=== PATIENT | male | born 1945 | race Caucasian/White ===

== ENCOUNTER → 2017-02-23 | Outpatient (CLI) | payer MEDICARE ==
[~2017-02-23] VITALS: Ht 172.7 cm; Wt 87.3 kg
[~2017-02-23] MED LIST: ADVIL200 MG PO; FORADIL IH; GOOD SENSE ASP325 M1 PO; PLAVIX 75MG TAB75 MG PO; SPIRIVA18 MCG IH; THEOCAP200 MG PO; TYLENOL 500MG500 MG PO; VENTOLIN0.09 MG INH; ZOCOR40 MG PO
[2017-02-23 16:26] VITALS: BP 179/99
== END ==
LOC: AMSURD 16:03
DX: R06.00 Dyspnea, unspecified (principal); Z12.5 Encounter for screening for malignant neoplasm of prostate; E78.2 Mixed hyperlipidemia; M54.16 Radiculopathy, lumbar region; G46.0 Middle cerebral artery syndrome; I49.3 Ventricular premature depolarization; J44.9 Chronic obstructive pulmonary disease, unspecified; I67.9 Cerebrovascular disease, unspecified

== ENCOUNTER → 2018-03-20 | Outpatient (CLI) | payer MEDICARE ==
[2017-02-23 16:26] VITALS: BP 179/99
[2018-03-20 09:26] LABS: EOS # 0.1 (0.04-0.40); HEMATOCRIT 45.6 % (42.0-52.0); LYMPH# 1.2 (1.50-4.00); MEAN CELL VOLUME 95 fl (78-100); MEAN CORPUSCULAR HEMOGLOBIN 31 pg (27-31); MEAN CORPUSCULAR HGB CONC 33 g/dL (33-37); MEAN PLATELET VOLUME 9.7 fl (7.4-10.4); MONO # 0.8 (0.20-0.80); PLATELET COUNT 214 K/mm3 (130-400); RED CELL DISTRIBUTION WIDTH 12.8 % (11.5-14.5); WHITE BLOOD COUNT 9.1 K/mm3 (4.8-10.8)
[2018-03-20 09:55] LABS: ALBUMIN 4.6 g/dL (3.5-5.0); BUN/CREATININE RATIO 15.6 (6.0-26.0); CALCIUM 9.5 mg/dL (8.4-10.2); POTASSIUM 4.3 mmol/L (3.6-5.0); TOTAL BILIRUBIN 0.5 mg/dL (0.2-1.3); TOTAL PROTEIN 7.4 g/dL (6.3-8.2)
[2018-03-20 10:55] LABS: ERYTHROCYTE SEDIMENTATION RATE 17 mm/hr (0-20)
== END ==
LOC: LAB 09:09
PROVIDERS: Internal Medicine
DX: Z12.5 Encounter for screening for malignant neoplasm of prostate (principal); Z12.11 Encounter for screening for malignant neoplasm of colon; E78.2 Mixed hyperlipidemia; J44.9 Chronic obstructive pulmonary disease, unspecified; D12.6 Benign neoplasm of colon, unspecified

== ENCOUNTER → 2019-04-09 | Outpatient (CLI) | payer MEDICARE ==
[2017-02-23 16:26] VITALS: BP 179/99
[2019-04-09 09:34] LABS: EOS # 0.1 (0.04-0.40); EOS % 1.4 % (0.0-4.0); HEMATOCRIT 45.5 % (42.0-52.0); LYMPH# 1.2 (1.50-4.00); MEAN CELL VOLUME 95 fl (78-100); MEAN CORPUSCULAR HEMOGLOBIN 31 pg (27-31); MEAN CORPUSCULAR HGB CONC 33 g/dL (33-37); MEAN PLATELET VOLUME 10.2 fl (7.4-10.4); MONO # 0.7 (0.20-0.80); NEU # 7.3 (1.40-6.50); PLATELET COUNT 208 K/mm3 (130-400); RED BLOOD COUNT 4.77 M/mm3 (4.20-5.60); RED CELL DISTRIBUTION WIDTH 13.1 % (11.5-14.5); WHITE BLOOD COUNT 9.4 K/mm3 (4.8-10.8)
[2019-04-09 09:45] LABS: ALBUMIN 4.3 g/dL (3.4-4.8); POTASSIUM 4.1 mmol/L (3.5-5.1)
[2019-04-09 09:46] LABS: CALCIUM 9.3 mg/dL (8.3-10.5)
[2019-04-09 09:47] LABS: TOTAL PROTEIN 7.2 g/dL (6.2-8.1)
[2019-04-09 09:49] LABS: TOTAL BILIRUBIN 0.3 mg/dL (0.2-1.2)
[2019-04-09 10:40] LABS: ERYTHROCYTE SEDIMENTATION RATE 12 mm/hr (0-20)
== END ==
LOC: LAB 09:23
PROVIDERS: Internal Medicine
DX: Z00.00 Encounter for general adult medical examination without abnormal findings (principal); Z12.11 Encounter for screening for malignant neoplasm of colon; Z12.5 Encounter for screening for malignant neoplasm of prostate; E78.5 Hyperlipidemia, unspecified; G45.9 Transient cerebral ischemic attack, unspecified; N52.9 Male erectile dysfunction, unspecified

== ENCOUNTER → 2019-10-08 | Outpatient (CLI) | payer MEDICARE ==
[2017-02-23 16:26] VITALS: BP 179/99
[2019-10-08 09:36] LABS: EOS # 0.1 (0.04-0.40); EOS % 1.2 % (0.0-4.0); HEMATOCRIT 47.4 % (42.0-52.0); HEMOGLOBIN 15.1 g/dL (13.5-18.0); LYMPH# 1.1 (1.50-4.00); MEAN CELL VOLUME 94 fl (78-100); MEAN CORPUSCULAR HEMOGLOBIN 30 pg (27-31); MEAN CORPUSCULAR HGB CONC 32 g/dL (33-37); MEAN PLATELET VOLUME 9.9 fl (7.4-10.4); NEU # 6.7 (1.40-6.50); PLATELET COUNT 244 K/mm3 (130-400); RED BLOOD COUNT 5.02 M/mm3 (4.20-5.60); RED CELL DISTRIBUTION WIDTH 12.9 % (11.5-14.5); WHITE BLOOD COUNT 8.9 K/mm3 (4.8-10.8)
[2019-10-08 09:39] LABS: ALBUMIN 4.5 g/dL (3.4-4.8); POTASSIUM 4.1 mmol/L (3.5-5.1)
[2019-10-08 09:40] LABS: CALCIUM 9.8 mg/dL (8.3-10.5)
[2019-10-08 09:42] LABS: TOTAL PROTEIN 7.7 g/dL (6.2-8.1)
[2019-10-08 09:44] LABS: TOTAL BILIRUBIN 0.3 mg/dL (0.2-1.2)
[2019-10-08 10:47] LABS: ERYTHROCYTE SEDIMENTATION RATE 19 mm/hr (0-20)
== END ==
LOC: LAB 09:13
PROVIDERS: Internal Medicine
DX: J44.9 Chronic obstructive pulmonary disease, unspecified (principal); D12.6 Benign neoplasm of colon, unspecified; E78.5 Hyperlipidemia, unspecified

== ENCOUNTER → 2020-04-13 | Outpatient (CLI) | payer MEDICARE ==
[2017-02-23 16:26] VITALS: BP 179/99
[2020-04-13 09:39] LABS: EOS # 0.1 (0.04-0.40); EOS % 1.1 % (0.0-4.0); HEMATOCRIT 47.1 % (42.0-52.0); HEMOGLOBIN 15.3 g/dL (13.5-18.0); LYMPH# 1.2 (1.50-4.00); MEAN CELL VOLUME 96 fl (78-100); MEAN CORPUSCULAR HEMOGLOBIN 31 pg (27-31); MEAN CORPUSCULAR HGB CONC 33 g/dL (33-37); MEAN PLATELET VOLUME 9.8 fl (7.4-10.4); MONO # 0.7 (0.20-0.80); NEU # 7.1 (1.40-6.50); PLATELET COUNT 246 K/mm3 (130-400); RED BLOOD COUNT 4.93 M/mm3 (4.20-5.60); WHITE BLOOD COUNT 9.1 K/mm3 (4.8-10.8)
[2020-04-13 11:14] LABS: ALBUMIN 4.5 g/dL (3.4-4.8)
[2020-04-13 11:15] LABS: POTASSIUM 4.4 mmol/L (3.5-5.1)
[2020-04-13 11:16] LABS: CALCIUM 9.4 mg/dL (8.3-10.5)
[2020-04-13 11:17] LABS: TOTAL PROTEIN 7.7 g/dL (6.2-8.1)
[2020-04-13 11:19] LABS: TOTAL BILIRUBIN 0.3 mg/dL (0.2-1.2)
[2020-04-13 11:54] LABS: ERYTHROCYTE SEDIMENTATION RATE 9 mm/hr (0-20)
== END ==
LOC: LAB 09:23
PROVIDERS: Internal Medicine
DX: J43.9 Emphysema, unspecified (principal)

== ENCOUNTER → 2020-04-16 | Outpatient (CLI) | payer MEDICARE ==
[2017-02-23 16:26] VITALS: BP 179/99
== END ==
LOC: RAD 15:33
DX: R06.02 Shortness of breath (principal)

== ENCOUNTER → 2020-10-27 | Outpatient (CLI) | payer MEDICARE ==
[2017-02-23 16:26] VITALS: BP 179/99
[2020-10-27 11:04] LABS: HEMATOCRIT 45.3 % (42.0-52.0); HEMOGLOBIN 14.4 g/dL (13.5-18.0); MEAN CELL VOLUME 95 fl (78-100); MEAN CORPUSCULAR HEMOGLOBIN 30 pg (27-31); MEAN CORPUSCULAR HGB CONC 32 g/dL (33-37); MEAN PLATELET VOLUME 10.1 fl (7.4-10.4); PLATELET COUNT 220 K/mm3 (130-400); RED BLOOD COUNT 4.75 M/mm3 (4.20-5.60); RED CELL DISTRIBUTION WIDTH 12.9 % (11.5-14.5); WHITE BLOOD COUNT 10.1 K/mm3 (4.8-10.8)
[2020-10-27 11:18] LABS: ALBUMIN 4.4 g/dL (3.4-4.8)
[2020-10-27 11:19] LABS: POTASSIUM 4.5 mmol/L (3.5-5.1)
[2020-10-27 11:20] LABS: CALCIUM 9.5 mg/dL (8.3-10.5)
[2020-10-27 11:21] LABS: TOTAL PROTEIN 7.5 g/dL (6.2-8.1)
[2020-10-27 11:23] LABS: TOTAL BILIRUBIN 0.3 mg/dL (0.2-1.2)
[2020-10-27 11:25] LABS: LYMPHOCYTE 11 % (20-51); MONOCYTE 5 % (3-10); NEUTROPHILS 82 % (42-75)
[2020-10-27 12:20] LABS: ERYTHROCYTE SEDIMENTATION RATE 19 mm/hr (0-20)
== END ==
LOC: LAB 10:29
PROVIDERS: Internal Medicine
DX: J44.9 Chronic obstructive pulmonary disease, unspecified (principal)

== ENCOUNTER → 2021-04-22 | Outpatient (CLI) | payer MEDICARE ==
[2021-04-22 11:04] LABS: ALBUMIN 4.5 g/dL (3.4-4.8); POTASSIUM 4.7 mmol/L (3.5-5.1)
[2021-04-22 11:05] LABS: CALCIUM 10.4 mg/dL (8.3-10.5)
[2021-04-22 11:06] LABS: TOTAL PROTEIN 7.8 g/dL (6.2-8.1)
[2021-04-22 11:08] LABS: TOTAL BILIRUBIN 0.6 mg/dL (0.2-1.2)
[2021-04-22 12:06] LABS: BASO # 0.02 (0.02-0.10); EOS # 0.12 (0.04-0.40); EOS % 1.3 % (0.0-4.0); HEMATOCRIT 48.5 % (42.0-52.0); HEMOGLOBIN 15.2 g/dL (13.5-18.0); LYMPH# 1.34 (1.50-4.00); MEAN CELL VOLUME 98 fl (78-100); MEAN CORPUSCULAR HEMOGLOBIN 31 pg (27-31); MEAN CORPUSCULAR HGB CONC 31 g/dL (33-37); MEAN PLATELET VOLUME 10.2 fl (7.4-10.4); MONO # 0.61 (0.20-0.80); PLATELET COUNT 232 K/mm3 (130-400); RED BLOOD COUNT 4.96 M/mm3 (4.20-5.60); RED CELL DISTRIBUTION WIDTH 12.5 % (11.5-14.5); WHITE BLOOD COUNT 8.9 K/mm3 (4.8-10.8)
== END ==
LOC: LAB 10:22
PROVIDERS: Internal Medicine
DX: Z12.5 Encounter for screening for malignant neoplasm of prostate (principal); E78.2 Mixed hyperlipidemia; K90.9 Intestinal malabsorption, unspecified

== ENCOUNTER → 2021-11-12 | Outpatient (CLI) | payer MEDICARE ==
[2021-11-12 11:52] LABS: BASO # 0.03 K/mm3 (0.02-0.10); EOS # 0.12 K/mm3 (0.04-0.40); EOS % 1.4 % (0.0-4.0); HEMATOCRIT 45.2 % (42.0-52.0); HEMOGLOBIN 14.6 g/dL (13.5-18.0); LYMPH# 1.32 K/mm3 (1.50-4.00); MEAN CELL VOLUME 94 fl (78-100); MEAN CORPUSCULAR HEMOGLOBIN 30 pg (27-31); MEAN CORPUSCULAR HGB CONC 32 g/dL (33-37); MEAN PLATELET VOLUME 9.6 fl (7.4-10.4); MONO # 0.55 K/mm3 (0.20-0.80); NEU # 6.35 K/mm3 (1.40-6.50); PLATELET COUNT 219 K/mm3 (130-400); RED BLOOD COUNT 4.82 M/mm3 (4.20-5.60); RED CELL DISTRIBUTION WIDTH 12.8 % (11.5-14.5); WHITE BLOOD COUNT 8.4 K/mm3 (4.8-10.8)
[2021-11-12 12:06] LABS: POTASSIUM 4.5 mmol/L (3.5-5.1)
[2021-11-12 12:07] LABS: ALBUMIN 4.4 g/dL (3.4-4.8)
[2021-11-12 12:08] LABS: CALCIUM 9.5 mg/dL (8.3-10.5)
[2021-11-12 12:09] LABS: TOTAL PROTEIN 7.4 g/dL (6.2-8.1)
[2021-11-12 12:11] LABS: TOTAL BILIRUBIN 0.5 mg/dL (0.2-1.2)
[2021-11-12 13:18] LABS: ERYTHROCYTE SEDIMENTATION RATE 2 mm/hr (0-20)
== END ==
LOC: LAB 11:34
PROVIDERS: Internal Medicine
DX: J44.9 Chronic obstructive pulmonary disease, unspecified (principal); E78.2 Mixed hyperlipidemia; K90.9 Intestinal malabsorption, unspecified; I71.4 Abdominal aortic aneurysm, without rupture

== ENCOUNTER → 2021-12-20 | Outpatient (CLI) | payer MEDICARE | LOC: LAB 09:34 | DX: K90.9 Intestinal malabsorption, unspecified (principal); E55.9 Vitamin D deficiency, unspecified ==

== ENCOUNTER → 2022-11-17 | Outpatient (CLI) | payer MEDICARE ==
[2022-11-17 10:01] LABS: BASO # 0.02 K/mm3 (0.02-0.10); EOS # 0.09 K/mm3 (0.04-0.40); EOS % 0.9 % (0.0-4.0); HEMATOCRIT 45.5 % (42.0-52.0); HEMOGLOBIN 14.4 g/dL (13.5-18.0); LYMPH# 1.27 K/mm3 (1.50-4.00); MEAN CELL VOLUME 97 fl (78-100); MEAN CORPUSCULAR HEMOGLOBIN 31 pg (27-31); MEAN CORPUSCULAR HGB CONC 32 g/dL (33-37); MEAN PLATELET VOLUME 9.9 fl (7.4-10.4); MONO # 0.69 K/mm3 (0.20-0.80); NEU # 7.44 K/mm3 (1.40-6.50); PLATELET COUNT 237 K/mm3 (130-400); RED BLOOD COUNT 4.67 M/mm3 (4.20-5.60); RED CELL DISTRIBUTION WIDTH 12.6 % (11.5-14.5); WHITE BLOOD COUNT 9.5 K/mm3 (4.8-10.8)
[2022-11-17 10:04] LABS: POTASSIUM 4.2 mmol/L (3.5-5.1)
[2022-11-17 10:05] LABS: ALBUMIN 4.3 g/dL (3.4-4.8)
[2022-11-17 10:06] LABS: CALCIUM 9.9 mg/dL (8.3-10.5)
[2022-11-17 10:07] LABS: TOTAL PROTEIN 7.2 g/dL (6.2-8.1)
[2022-11-17 10:09] LABS: TOTAL BILIRUBIN 0.3 mg/dL (0.2-1.2)
[2022-11-17 10:14] LABS: MAGNESIUM 1.92 mg/dL (1.60-2.60)
[2022-11-17 11:15] LABS: ERYTHROCYTE SEDIMENTATION RATE 20 mm/hr (0-20)
== END ==
LOC: LAB 09:39
PROVIDERS: Internal Medicine
DX: I71.40 Abdominal aortic aneurysm, without rupture, unspecified (principal); J44.9 Chronic obstructive pulmonary disease, unspecified; K90.9 Intestinal malabsorption, unspecified; E78.2 Mixed hyperlipidemia; F41.1 Generalized anxiety disorder

== ENCOUNTER → 2024-05-16 | Outpatient (CLI) | payer MEDICARE ==
[2024-05-16 10:33] LABS: BASO # 0.01 K/mm3 (0.02-0.10); EOS # 0.07 K/mm3 (0.04-0.40); EOS % 0.8 % (0.0-4.0); HEMATOCRIT 44.1 % (42.0-52.0); LYMPH# 1.42 K/mm3 (1.50-4.00); MEAN CELL VOLUME 98 fl (78-100); MEAN CORPUSCULAR HEMOGLOBIN 31 pg (27-31); MEAN CORPUSCULAR HGB CONC 32 g/dL (33-37); MEAN PLATELET VOLUME 9.9 fl (7.4-10.4); MONO # 0.69 K/mm3 (0.20-0.80); NEU # 6.86 K/mm3 (1.40-6.50); PLATELET COUNT 215 K/mm3 (130-400); RED CELL DISTRIBUTION WIDTH 12.4 % (11.5-14.5); WHITE BLOOD COUNT 9.1 K/mm3 (4.8-10.8)
[2024-05-16 10:50] LABS: ALBUMIN 4.3 g/dL (3.4-4.8)
[2024-05-16 10:51] LABS: CALCIUM 9.6 mg/dL (8.3-10.5)
[2024-05-16 10:53] LABS: TOTAL PROTEIN 7.2 g/dL (6.2-8.1)
[2024-05-16 10:54] LABS: TOTAL BILIRUBIN 0.3 mg/dL (0.2-1.2)
[2024-05-16 10:59] LABS: MAGNESIUM 1.87 mg/dL (1.60-2.60)
== END ==
LOC: LAB 10:18
PROVIDERS: Internal Medicine
DX: E78.2 Mixed hyperlipidemia (principal); K90.9 Intestinal malabsorption, unspecified

== ENCOUNTER → 2024-11-14 | Outpatient (CLI) | payer MEDICARE ==
[2024-11-14 16:27] LABS: BASO # 0.03 K/mm3 (0.02-0.10); EOS % 1.7 % (0.0-4.0); HEMATOCRIT 41.6 % (42.0-52.0); HEMOGLOBIN 13.1 g/dL (13.5-18.0); LYMPH# 1.61 K/mm3 (1.50-4.00); MEAN CELL VOLUME 98 fl (78-100); MEAN CORPUSCULAR HEMOGLOBIN 31 pg (27-31); MEAN CORPUSCULAR HGB CONC 32 g/dL (33-37); MEAN PLATELET VOLUME 9.8 fl (7.4-10.4); MONO # 0.91 K/mm3 (0.20-0.80); NEU # 8.81 K/mm3 (1.40-6.50); PLATELET COUNT 286 K/mm3 (130-400); RED BLOOD COUNT 4.23 M/mm3 (4.20-5.60); RED CELL DISTRIBUTION WIDTH 12.1 % (11.5-14.5); WHITE BLOOD COUNT 11.6 K/mm3 (4.8-10.8)
[2024-11-14 16:35] LABS: ALBUMIN 4.3 g/dL (3.4-4.8)
[2024-11-14 16:36] LABS: CALCIUM 10.1 mg/dL (8.3-10.5)
[2024-11-14 16:37] LABS: TOTAL PROTEIN 8.1 g/dL (6.2-8.1)
[2024-11-14 16:39] LABS: TOTAL BILIRUBIN 0.3 mg/dL (0.2-1.2)
[2024-11-14 16:44] LABS: MAGNESIUM 1.99 mg/dL (1.60-2.60)
[2024-11-14 16:45] LABS: URINE APPEARANCE CLOUDY (CLEAR); URINE COLOR DARK YELLOW (YELLOW)
[2024-11-14 16:46] LABS: PH-URINE 5.5 (5.0 - 8.0); URINE BILIRUBIN NEGATIVE (NEGATIVE); URINE BLOOD 3+ (NEGATIVE); URINE GLUCOSE NEGATIVE (NEGATIVE); URINE KETONE NEGATIVE (NEGATIVE); URINE LEUKOCYTE ESTERASE TRACE (NEGATIVE); URINE NITRATE NEGATIVE (NEGATIVE); URINE PROTEIN(semi-quant) 3+ (NEGATIVE); URINE WBC 16-30 /hpf (0-3)
== END ==
LOC: LAB 16:11
PROVIDERS: Internal Medicine
DX: Z12.5 Encounter for screening for malignant neoplasm of prostate (principal); E78.2 Mixed hyperlipidemia; K90.9 Intestinal malabsorption, unspecified; N39.0 Urinary tract infection, site not specified